=== PATIENT | male | born 1970 | race Caucasian/White ===

== ENCOUNTER 2019-02-17 18:20 | Observation (INO) ==
--- NOTE | 2019-02-17 18:33 | Emergency Department Note ---
Disposition Clinical Impression: Facial droop Disposition: Admitted As Inpatient Time of Disposition: 21:28 General Adult HPI - General Chief complaint: ED Neuro Symptoms/Deficit Stated complaint: neuro symptoms Time Seen by Provider: 02/17/19 18:27 Nursing Notes Reviewed: Yes Vital Signs Reviewed: Yes - History of Present Illness HPI Narrative: 48-year-old male with no prior medical history who presents emergency department with complaints of right-sided facial droop, confusion. Last known well 1415, 4.5 hours [employer]. The patient has questionable history of stroke which he says he is never been diagnosed however. Patient takes no blood thinners. Family states he has been intermittently confused, slurred speech has had right-sided facial droop. Patient notes that he had sudden onset lightheadedness left-sided arm weakness, then right arm tingling and a right facial tingling. He is a patient denies any nausea, vomiting, abdominal pain, chest pain, shortness of breath. He is that he has felt similar symptoms in the past but has never been seen by a doctor for this as he does not routinely follow-up with physicians. - Related Data Home Medications Medication Instructions Recorded Confirmed No Known Home Drugs 02/17/19 02/17/19 Allergies Allergy/AdvReac Type Severity Reaction Status Date / Time No Known Allergies Allergy Verified 10/08/16 21:50 Review of Systems: ROS per history of present illness, all other systems reviewed and negative or normal. All systems ED: reviewed and negative except as stated. Review of Systems: As Per HPI Past Medical History - Past Medical History Medical history: Reports: no medical history Surgical history: Reports: non-contributory Psychiatric history: Reports: no psych history - Social History Smoking Status: Current every day smoker Smokeless Tobacco Status: No Alcohol use: Reports: occasionally Drug use: Reports: none Physical Exam General: Conversant. No apparent distress. Follow commands. Appears stated age. Neck: No JVD. Trachea midline. Neck supple. Eyes: PERRL. No scleral icterus. HENT: Normocephalic and atraumatic. Moist mucus membranes. Cardiovascular: Regular rate and rhythm. Normal S1 and S2. No murmurs appreciated. Normal capillary refill. Extremities well perfused with 2+ distal pulses bilaterally. No edema. Pulmonary: Normal and equal breath sounds bilaterally, anteriorly and p osteriorly. No wheezes, rales, or rhonchi. Not in respiratory distress. Speaks in full sentences. Abdomen: Soft, nondistended, and tontender. No bruits or masses. No guarding. Neuro: Alert and oriented to person, place, and time. CN II-XII tested and grossly intact. No hemineglect. Speech is fluid. Right-sided nasolabial flattening. Sensory: Sensation intact to light touch in all extremities. Motor: Normal tone and bulk. No pronator drift. 5/5 strength in LUE 5/5 strength in RUE 5/5 strength in LLE 5/5 strength in RLE Coordination: Finger to nose intact bilaterally. Reflexes: Brachioradialis, biceps, and patellar reflexes 2+ and symmetric bilaterally. Skin: No rashes noted on visualized skin. Musculoskeletal: No bony abnormalities visualized. Moves all extremities. Psych: Normal mood. Pleasant. Makes appropriate eye contact. Course - Reevaluation(s) Reevaluation #1: Patient evaluated via telerobot by neurologist. Patient does not meet criteria for TPA. CT head negative per [facility]. Patient is agreeable to admission. Time: 18:50 Vital Signs Temperature 97.8 F 02/17/19 18:26 Pulse Rate 93 02/17/19 18:26 Respiratory Rate 16 02/17/19 18:26 Blood Pressure 194/108 02/17/19 18:26 O2 Sat by Pulse Oximetry 100 02/17/19 18:26 Temperature 97.8 F 02/17/19 18:26 Pulse Rate 67 02/17/19 20:30 Respiratory Rate 16 02/17/19 20:30 Blood Pressure 173/110 02/17/19 20:30 O2 Sat by Pulse Oximetry 96 02/17/19 20:30 Oxygen Delivery Oxygen Delivery Room Air Medical Decision Making - [facility] Narrative Medical decision making narrative: 48-year-old male with no prior medical history who presents the emergency department due to right-sided facial droop. NIH on arrival 1 secondary to right-sided facial droop. Stroke alert was called given the patient's under 6 hour timeframe area and he is outside of the window for tPA. CT head shows no evidence of hemorrhage. [facility] neurology evaluated the patient here in the emergency department via telerobot and deemed the patient not a candidate for tPA. Given the symptoms which are not localizable to a specific region he did not recommend further CT angiogram. He did recommend brain MRI with admission for further neurologic evaluation. The patients laboratory evaluation shows no evidence of acute abnormalities. Especially given the patient does not follow with physicians frequently did encourage the patient to stay for further evaluation and he has previously had strokelike symptoms for which he was not evaluated. Discussed case with on-call hospitalist who agrees with plan for admission and accepts the patient to the inpatient service. Patient agrees with and understands course of treatment plan including plan for admission. All questions answered. - Medical Records Medical records reviewed: Yes I reviewed the patient's medical records. - Lab Data Lab results reviewed: Yes I reviewed the patient's lab results. Result diagrams: 02/17/19 18:40 02/17/19 18:40 Lab Results 02/17/19 02/17/19 02/17/19 Range/Units 18:40 18:40 18:40 WBC 7.7 (4.3-11.1) K/mcL RBC 4.71 (4.19-5.50) M/mcL Hgb 14.4 (12.9-16.9) g/dL Hct 44.4 (37.5-50.1) % MCV 94.3 (83.0-100.0) fL MCH 30.6 (28.0-33.3) pg MCHC 32.4 (31.6-35.5) g/dL RDW 12.0 (11.5-14.5) % Plt Count 324 (140-400) K/mcL MPV 10.2 (9.4-12.4) fL PT 12.6 H (9.4-12.1) Seconds INR 1.1 APTT 31.5 (26.0-36.0) Seconds Sodium 141 (136-145) mEq/L Potassium 3.4 L (3.5-5.1) mEq/L Chloride 107 (98-107) mEq/L Carbon Dioxide 24 (23-29) mEq/L BUN 11 (6-20) mg/dL Creatinine 1.17 (0.70-1.30) mg/dL Est GFR ( Amer) > 60 (> 60) Est GFR (Non-Af Amer) > 60 (> 60) BUN/Creatinine Ratio 9 (6-26) Glucose 110 H (70-105) mg/dL Calculated Osmolality 292 (280-300) Calcium 9.9 (8.6-10.3) mg/dL Troponin I < 0.03 (< 0.04) ng/mL - Radiology Data Radiology results reviewed: Yes I reviewed the patient's radiology results. Head CT 02/17/19 18:27 IMPRESSION: No acute intracranial abnormality. Findings were discussed with Jerri Granger at 6:44 pm on 02/17/2019. D/ / Jules Leos MD / Jules Leos MD Interpreting Provider: Jules Leos MD - EKG Data EKG #1 EKG attestation: Yes I reviewed and interpreted this EKG. EKG results narrative: Normal sinus rhythm rate 96. Normal axis. T-wave flattening in aVL, no acute ischemic changes. No prior for comparison. NIH Stroke Scale - Level of Consciousness LOC: Alert - LOC Questions LOC Questions: Answers both correctly - LOC Commands LOC Commands: Performs both correctly - Best Gaze Best Gaze: Normal - Visual Visual: No visual loss - Facial Palsy Facial Palsy: Minor asymmetry on smiling, flattened nasolabial fold - Motor Arms Motor Arm-Left: No drift for 10 seconds Motor Arm-Right: No drift for 10 seconds - Motor Legs Motor Leg-Left: No drift for 5 seconds Motor Leg-Right: No drift for 5 seconds - Limb Ataxia Limb Ataxia: Absent of affected limb too weak to perform exam - Sensory Sensory: Normal - Best Language Best Language: No aphasia - Dysarthria Dysarthria: Normal - Extinction and Inattention Extinction and Inattention: Normal - NIHSS Total Score NIHSS Total Score: 1
[2019-02-17 18:53] LABS: Hematocrit 44.4 % (37.5-50.1); Hemoglobin 14.4 g/dL (12.9-16.9); Mean Corpuscular HGB Conc 32.4 g/dL (31.6-35.5); Mean Corpuscular Hemoglobin 30.6 pg (28.0-33.3); Mean Corpuscular Volume 94.3 fL (83.0-100.0); Mean Platelet Volume 10.2 fL (9.4-12.4); Platelet Count 324 K/mcL (140-400); Red Blood Count 4.71 M/mcL (4.19-5.50); White Blood Count 7.7 K/mcL (4.3-11.1)
[2019-02-17 19:01] LABS: INR 1.1; Prothrombin Time 12.6 Seconds (9.4-12.1)
[2019-02-17 19:04] LABS: Activated Partial Thrombo Time 31.5 Seconds (26.0-36.0)
[2019-02-17 19:12] LABS: BUN/Creatinine Ratio 9 (6-26); Blood Urea Nitrogen 11 mg/dL (6-20); Calcium 9.9 mg/dL (8.6-10.3); Carbon Dioxide 24 mEq/L (23-29); Chloride 107 mEq/L (98-107); Glucose 110 mg/dL (70-105); Osmolality,Calculated 292 (280-300); Potassium 3.4 mEq/L (3.5-5.1); Sodium 141 mEq/L (136-145); eGFR For African Americans > 60 (> 60); eGFR For Non-African Americans > 60 (> 60)
[2019-02-17 19:14] LABS: Troponin I < 0.03 ng/mL (< 0.04)
--- NOTE | 2019-02-17 20:30 | Emergency Department Note ---
Disposition Clinical Impression: Facial droop Disposition: Admitted As Inpatient Time of Disposition: 21:28 General Adult HPI - General Chief complaint: ED Neuro Symptoms/Deficit Stated complaint: neuro symptoms Time Seen by Provider: 02/17/19 18:27 Source: patient Limitations: no limitations - History of Present Illness Pain Scale: 4 - Related Data Home Medications Medication Instructions Recorded Confirmed No Known Home Drugs 02/17/19 02/17/19 Allergies Allergy/AdvReac Type Severity Reaction Status Date / Time No Known Allergies Allergy Verified 10/08/16 21:50 Past Medical History - Past Medical History Medical history: Reports: no medical history Surgical history: Reports: non-contributory Psychiatric history: Reports: no psych history - Social History Smoking Status: Former smoker Smokeless Tobacco Status: No Alcohol use: Reports: occasionally Drug use: Reports: none Physical Exam - General Limitations: no limitations General appearance: alert, in no apparent distress Course Vital Signs Temperature 97.8 F 02/17/19 18:26 Pulse Rate 93 02/17/19 18:26 Respiratory Rate 16 02/17/19 18:26 Blood Pressure 194/108 02/17/19 18:26 O2 Sat by Pulse Oximetry 100 02/17/19 18:26 Temperature 97.8 F 02/17/19 18:26 Pulse Rate 62 02/17/19 21:30 Respiratory Rate 16 02/17/19 21:30 Blood Pressure 163/89 02/17/19 21:30 O2 Sat by Pulse Oximetry 96 02/17/19 21:30 Oxygen Delivery Oxygen Delivery Room Air Medical Decision Making - Lab Data Result diagrams: 02/17/19 18:40 02/17/19 18:40 Lab Results 02/17/19 02/17/19 02/17/19 Range/Units 18:40 18:40 18:40 WBC 7.7 (4.3-11.1) K/mcL RBC 4.71 (4.19-5.50) M/mcL Hgb 14.4 (12.9-16.9) g/dL Hct 44.4 (37.5-50.1) % MCV 94.3 (83.0-100.0) fL MCH 30.6 (28.0-33.3) pg MCHC 32.4 (31.6-35.5) g/dL RDW 12.0 (11.5-14.5) % Plt Count 324 (140-400) K/mcL MPV 10.2 (9.4-12.4) fL PT 12.6 H (9.4-12.1) Seconds INR 1.1 APTT 31.5 (26.0-36.0) Seconds Sodium 141 (136-145) mEq/L Potassium 3.4 L (3.5-5.1) mEq/L Chloride 107 (98-107) mEq/L Carbon Dioxide 24 (23-29) mEq/L BUN 11 (6-20) mg/dL Creatinine 1.17 (0.70-1.30) mg/dL Est GFR ( Amer) > 60 (> 60) Est GFR (Non-Af Amer) > 60 (> 60) BUN/Creatinine Ratio 9 (6-26) Glucose 110 H (70-105) mg/dL Calculated Osmolality 292 (280-300) Calcium 9.9 (8.6-10.3) mg/dL Troponin I < 0.03 (< 0.04) ng/mL Attestation Statement - Attestation Attestation: I examined this patient and my medical decision-making was reviewed with the Resident Physician. I agree with the documented findings, disposition and treatment plan as described except to the extent set forth below. Patient 28-year-old Faisal presents to emergency department with chief complaint of right-sided facial droop and paresthesias. Patient states he started having approximately 2 PM today and they have been progressive since then. Per the family the patient has been less active over the last several days and they notices been getting worse. His exam patient awake alert has some mild facial asymmetry on exam otherwise no large gross neurological deficits Medical decision management the patient is not a TPA candidate at this time the case was underwent CT head and metabolic evaluation and the patient will be admitted to the hospitalist service for stroke evaluation
[2019-02-17] MEDS ORDERED: Aspirin 325 MG TABLET PO ONE (21:15)
--- NOTE | 2019-02-17 21:20 | Internal Med History&Physical ---
Date of Encounter: 02/17/19 Time of Encounter: 21:17 Internal Medicine - H&P: HPI Chief complaint: Facial droop History of present illness: Mr. Sterling is a 48 year old male with no prior past medical history who presents to the ED with right-sided facial droop, confusion. Patient was last known well around 2:15 this afternoon. Per family, patient has been intermitte ntly confused, demonstrating slurred speech and right-sided facial droop. Patient also does endorse some tingling in the right arm and right side of the face. No reports of recent illness, nausea, vomiting, fever, chills, chest pain, shortness of breath or diarrhea. Patient reports a similar episode in the past but did not seek any medical attention at the time. Patient does not routinely follow-up with physicians. On arrival patient was afebrile, hypertensive with a blood pressure of 194-108, heart rate 93 saturating 6% on room air. Laboratory workup was otherwise unremarkable. Stroke alert was called and patient was evaluated by [facility]. CT scan of the head was unremarkable. Given patient's timeframe and low suspicion for stroke no TPA was given. Past Med Surg Social Fam HX - Past Medical History Medical history: no medical history Psychiatric history: no psych history - Past Surgical History Surgical History: non-contributory Additional surgical history: abdominal surgery - Social History Smoking Status: Former smoker Smokeless Tobacco Status: No Alcohol use: occasionally Drug use: none Internal Medicine - H&P: Meds No Known Home Drugs 02/17/19 [History] Allergy/AdvReac Type Severity Reaction Status Date / Time No Known Allergies Allergy Verified 10/08/16 21:50 All Systems PM: A 10-system review of systems was performed and is negative for pertinent findings except as documented above in the HPI. - Constitutional Constitutional: no chills, no fever(s), no night sweats - EENT Eyes: no change in vision, no discharge, no pain, no photophobia Ears: no ear discharge, no ear pain, no tinnitus Nose, mouth and throat: no dysphagia, no nasal discharge, no neck pain, no sore throat - Cardiovascular Cardiovascular ROS IM: no chest pain, no diaphoresis, no dyspnea, no lightheadedness, no palpitations, no syncope - Respiratory Respiratory: no cough, no dyspnea, no wheezing, no excessive phlegm production - Gastrointestinal Gastrointestinal: no abdominal pain, no diarrhea, no hematemesis, no hematochezia, no melena, no nausea, no vomiting - Musculoskeletal Musculoskeletal ROS IM: no numbness, no tingling - Integumentary Integumentary IM: no rash, no unusual bruising - Neurological Neurological ROS: no confusion, no convulsions, no focal weakness, no numbness, no tingling, no tremor(s) - Hematologic/Lymphatic Hematologic/Lymphatic: no easy bruising - Constitutional Vitals: Temp Pulse Resp BP Pulse Ox 97.8 F 67 16 173/110 96 02/17/19 18:26 02/17/19 20:30 02/17/19 20:30 02/17/19 20:30 02/17/19 20:30 Exam: General: Alert and oriented Skin:Normal color, no rash, no lesions. HEENT:EOM, pupils equal, round and reactive. Cardiovascular:Normal S1 & S2, no rubs, murmurs or gallops. No JVD. Pulse r egular. Lungs:Normal breath sounds, no wheezes or crackles. Abdomen:Soft, non-tender, no rigidity. Extremities:No deformity, no edema or tenderness, no joint swelling or clubbing. Neurological:Normal cognition and motor skills. Pulses:Carotid and radial pulses normal +2. Rest of the physical exam is non contributory Internal Med - H&P Results - Labs CBC & Chem 7: 02/17/19 18:40 02/18/19 03:58 Labs: Short CBC 02/17/19 Range/Units 18:40 WBC 7.7 (4.3-11.1) K/mcL Hgb 14.4 (12.9-16.9) g/dL Hct 44.4 (37.5-50.1) % Plt Count 324 (140-400) K/mcL BMP 02/17/19 18:40 Sodium 141 Potassium 3.4 L Chloride 107 Carbon Dioxide 24 BUN 11 Creatinine 1.17 Glucose 110 H Calcium 9.9 Cardiac Enzymes 02/17/19 Range/Units 18:40 Troponin I < 0.03 (< 0.04) ng/mL - Impressions ITS Impressions Head CT 02/17/19 18:27 IMPRESSION: No acute intracranial abnormality. Findings were discussed with Jerri Granger at 6:44 pm on 02/17/2019. D/ / Jules Leos MD / Jules Leos MD Interpreting Provider: Jules Leos MD - Assessment and Plan (1) Facial droop Current Visit: Yes Status: Acute Assessment and plan: Patient presenting with right-sided facial droop. Per family patient is also been intermittently confused and dysarthric. Found to be hypertensive with a systolic blood pressure over [address] scan of the head was unremarkable. -Neurochecks -Telemetry -Allow for permissive hypertension. Treated blood pressure greater than 220/120 -We will obtain echocardiogram, bilateral carotid duplex -We will give loading dose of aspirin and atorvastatin -PT OT evaluation -Check lipid panel; A1c -MRI in the morning -Neurology consult (2) Hypertension Current Visit: Yes Status: Acute Assessment and plan: Elevated blood pressure on arrival. Currently 173 of 110. We will hold antihypertensive treatment for now to allow for permissive hypertension. Qualifiers: Hypertension type: essential hypertension Qualified Code(s): I10 - Essential (primary) hypertension (3) DVT prophylaxis Current Visit: Yes Status: Acute Assessment and plan: Subcutaneous heparin - Time Spent With Patient Total time spent is greater than 50% in coordination of care (as documented) at patient's floor/unit and/or counseling patient:
[2019-02-17] MEDS: *HR* Heparin 5,000 UNIT/ML VIAL SQ SCH (22:10)
[2019-02-17 23:17] LABS: Bilirubin,Urine Negative (Negative); Blood,Urine Negative (Negative); Clarity,Urine Clear (Clear); Color,Urine Yellow (Yellow); Glucose,Urine (UA) Normal (Normal); Ketones,Urine Negative (Negative); Leukocyte Esterase,Urine Negative (Negative); Nitrite,Urine Negative (Negative); Protein,Urine Negative (Neg-Trace); Specific Gravity,Urine 1.011 (1.010-1.025); Urobilinogen,Urine Normal (Normal)
[2019-02-18 04:56] LABS: INR 1.1
[2019-02-18 05:09] LABS: Alanine Aminotransferase 9 Units/L (7-52); Albumin 4.2 g/dL (3.5-5.7); Albumin/Globulin Ratio 2.1 (1.1-2.2); Alkaline Phosphatase 52 Units/L (34-104); Aspartate Amino Transferase 13 Units/L (13-39); BUN/Creatinine Ratio 12 (6-26); Bilirubin,Total 0.8 mg/dL (0.3-1.0); Blood Urea Nitrogen 12 mg/dL (6-20); Calcium 9.3 mg/dL (8.6-10.3); Carbon Dioxide 25 mEq/L (23-29); Chloride 108 mEq/L (98-107); Chol/HDL Ratio 4.4 (0-4.9); Cholesterol 119 mg/dL (< 200); Glucose 96 mg/dL (70-105); HDL Cholesterol 27 mg/dL (40-59); LDL Cholesterol,Calculated 57 mg/dL (0-99); Osmolality,Calculated 292 (280-300); Potassium 3.6 mEq/L (3.5-5.1); Sodium 141 mEq/L (136-145); Total Protein 6.2 g/dL (6.4-8.9); Triglycerides 175 mg/dL (< 150); Troponin I < 0.03 ng/mL (< 0.04); eGFR For African Americans > 60 (> 60); eGFR For Non-African Americans > 60 (> 60)
[2019-02-18] MEDS: *HR* Heparin 5,000 UNIT/ML VIAL SQ SCH (05:26)
[2019-02-18 06:52] LABS: Estimated Average Glucose 114 mg/dl
[2019-02-18 07:22] VITALS: BP 132/74
[2019-02-18] MEDS ORDERED: Aspirin Enteric Coated 81 MG Tablet PO SCH (09:00)
[2019-02-18 11:42] LABS: Amphetamine Screen,Urine Negative ng/mL (Cutoff=1000); Barbiturate Screen,Urine Negative ng/mL (Cutoff=200); Benzodiazepines Screen,Urine Negative ng/mL (Cutoff=200); Cannabinoid Screen,Urine Negative ng/mL (Cutoff = 50); Cocaine Screen,Urine Negative ng/mL (Cutoff= 300); Opiate Screen,Urine Negative ng/mL (Cutoff=300); Phencyclidine Screen,Urine Negative ng/mL (Cutoff=25)
--- NOTE | 2019-02-18 16:57 | Discharge Summary ---
- NOTES TO OUTPATIENT PROVIDER Notes to Outpatient Provider: Patient came in with slurred speech, confusion and facial droop concerning for TIA/CVA. His symptoms resolved before getting MRI of the brain, carotid Dopplers and echo. Patient left AMA before he was able to get this test done. He is placed on aspirin and Lipitor. Date of Encounter: 02/18/19 Time of Encounter: 09:00 - Discharge Diagnosis (1) Facial droop Priority: Primary Status: Acute (2) Hypertension Priority: Secondary Status: Acute Qualifiers: Hypertension type: essential hypertension Qualified Code(s): I10 - Essential (primary) hypertension (3) DVT prophylaxis Priority: Secondary Status: Acute Hospital course: Mr. Sterling is a 48 year old male with no problematic and history who came into the hospital with right-sided facial droop, confusion that started overnight. Patient's symptoms improved this morning and he decided to leave against medical advise before getting MRI of the brain, echocardiogram, and carotid Dopplers. I discussed the importance of getting this test [id number] with the patient however she decided to leave no matter what. Patient has full capacity to make medical decisions and he understand the risks behind leaving including possible stroke, recurrence of his symptoms and possible . He agrees to start following with a PCP and started on aspirin and Lipitor which I prescribed for him. Discharge discussed with: patient - Time Spent with Patient Total time spent providing and/or coordinating discharge services: 40 MINUTES - Discharge Medications Prescriptions: Yoni Aspirin Enteric Coated [Aspirin EC] 81 mg PO DAILY #90 tablet. Atorvastatin Calcium [Lipitor] 80 mg PO HS #90 tab Home Medications: Aspirin Enteric Coated [Aspirin EC] 81 mg PO DAILY #90 tablet. 02/18/19 [Rx] Atorvastatin Calcium [Lipitor] 80 mg PO HS #90 tab 02/18/19 [Rx] Allergies/Adverse Reactions: Allergy/AdvReac Type Severity Reaction Status Date / Time No Known Allergies Allergy Verified 10/08/16 21:50 Date of admission: 02/17/19 21:03 Primary care physician: PCP NONE Consults: 02/17/19 21:11 Consult to Neurology [CONS] Routine Consulting Provider: Neurology [facility] Reason for Consult: Evaluation for possible CVA/TIA Call Completed: No Consult to Occupational Therapy [CONS] Routine Comment: Evaluate, develop and implement POC Reason for Consult: Assessment for possible CVA/TIA Does patient have active BEDREST order?: No Is patient medically & hemodynamically stable?: Yes Consult to Physical Therapy [CONS] Routine Comment: Evaluate, develop and implement POC Reason for Consult: Assessment for possible CVA/TIA Does patient have active BEDREST order?: No Is patient medically & hemodynamically stable?: Yes Consult to Corporate Administrative Assistant [CONS] Routine Reason for SW Consult: Presenting with concern for CVA/TIA. Patient does not follow with a doctor for many years. - Constitutional Vitals: Temp Pulse Resp BP Pulse Ox 97.9 F 62 16 132/74 98 02/18/19 07:18 02/18/19 07:18 02/18/19 07:18 02/18/19 07:18 02/18/19 07:18 Exam: General: Patient is alert, oriented 3. Head: Atraumatic, normal inspection, normocephalic. Eye: EOMI, PERRLA, no scleral icterus noted. ENT: Mucous membranes moist. No odontogenic infection noted. Neck: Normal inspection, no meningismus. Respiratory: No respiratory distress, rhonchi, or wheezes noted. Cardiovascular: Regular rate and regular rhythm, S1 and S2 audible. No murmurs, rubs, or gallops. GI: Soft, nondistended, normal bowel sounds. Extremities:No joint swelling, pedal edema, or tenderness noted. Neurological: Alert, oriented 3, no focal deficits. Psychiatric: normal affect, normal mood. Skin: Dry, intact, warm. Normal color. No rashes. - Patient Status Disposition: Left Against Medical Advice Condition: Good Functional capacity at discharge: independent ambulation Overall status at discharge: patient is back to baseline - Discharge Instructions Follow Up With: NONE,PCP [Primary Care Provider] - - Diet and Activity Activity: resume usual activities as tolerated Diet: low salt diet
--- NOTE | 2019-02-20 06:26 | Electrocardiograph Report ---
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
== END 2019-02-18 10:11 | disposition left against medical advice (07) ==
LOC: EMEROOARM 18:20 → 3BNU 18:20 → SUATTDRO 21:03 → 3BNU 21:57
PROVIDERS: ADMIT Internal Medicine; ATTEND Internal Medicine